=== PATIENT | female | born 1985 | race Caucasian/White ===

== ENCOUNTER 2016-10-25 12:16 | Day surgery (SDC) | payer OTHER ==
[2016-10-25] VITALS (10 sets, daily range): BP systolic 97–106; BP diastolic 55–63; PULSE 80–93; RESP 13–29; Ht 170.2 cm; Wt 66.3 kg
[~2016-10-25] VITALS: Ht 170.2 cm; Wt 66.3 kg
[~2016-10-25 12:16] MED LIST: CEFAZOLIN 1 GM/50 ML (PMX) 50 ML IVPB SCH; NITR-52; PREN1TAB49; PROPOFOL 200 MG INJ ONE; SOD CHLORIDE 0.9% 1,000 ML IV SCH
[2016-10-25] MEDS ORDERED: FENTAnyl 50 MCG/ML VIAL ONE (14:38)
[2016-10-25] MEDS ORDERED: ONDANSETRON 4 MG INJ ONE (14:38)
[2016-10-25] MEDS ORDERED: DEXAMETHASONE 4 MG/ML 1 ML INJ ONE (14:38)
[2016-10-25] MEDS ORDERED: MIDAZOLAM 1 MG/ML 2 ML INJ ONE (14:38)
[2016-10-25] MEDS ORDERED: KETOROLAC 30 MG INJ ONE (14:38)
[2016-10-25] MEDS ORDERED: CEFAZOLIN 1 GM INJ ONE (14:38)
[2016-10-25] MEDS ORDERED: LIDOCAINE 100 MG SYRINGE ONE (14:38)
[2016-10-25] MEDS ORDERED: BUPIVACAINE 0.25% (MPF) 30 ML INJ ONE (15:00)
[2016-10-25] MEDS ORDERED: MIDAZOLAM 1 MG/ML 2 ML INJ IV PRN (15:30)
[2016-10-25] MEDS ORDERED: HYDROCODONE/APAP (5/325) TAB PO ONE (15:30)
[2016-10-25] MEDS ORDERED: TRIMETHOBENZAMIDE 100 MG/ML VIAL IM PRN (15:30)
[2016-10-25] MEDS ORDERED: DIPHENHYDRAMINE 50 MG INJ IV PRN (15:30)
[2016-10-25] MEDS ORDERED: FENTAnyl 50 MCG/ML VIAL IV PRN ×3 (15:30)
[2016-10-25] MEDS ORDERED: HYDROmorphONE (0.2 MG/ML) 10ML SYG IV PRN ×2 (15:30)
[2016-10-25] MEDS ORDERED: hydrALAzine 20 MG INJ IV PRN (15:30)
[2016-10-25] MEDS ORDERED: MEPERIDINE 25 MG INJ IV PRN (15:30)
[2016-10-25] MEDS ORDERED: ONDANSETRON 4 MG INJ IV PRN (15:30)
[2016-10-25] MEDS ORDERED: EPHEDrine SULFATE 50 MG/5 ML SYG IV PRN (15:30)
[2016-10-25] MEDS ORDERED: LABETALOL HCL 20MG INJ IV PRN (15:30)
[2016-10-25] MEDS: HYDROmorphONE (0.2 MG/ML) 10ML SYG IV PRN ×2 (15:45→16:02)
--- NOTE | 2016-10-25 16:21 | OPR ---
DATE OF OPERATION: 10/25/2016 INDICATION: This is a 31-year-old female with abdominal mass. She requests surgical excision of th e abdominal mass. Risks, alternatives, benefits, and personnel were discussed with the patient. Kannan denney expressed understanding and consents to the operation. POSTOPERATIVE DIAGNOSIS: Abdominal mass. OPERATION PERFORMED 1. Excision of abdominal mass with 5 cm size incision over the old incision. 2. Localized adjacent tissue transfer with the use of skin flaps. SURGEON: Blanca Sutton MD SPECIMENS: Abdominal mass. COMPLICATIONS: None. ANESTHESIA: General. PROCEDURE: The patient was taken to the OR and prepped and draped in usual sterile fashion. Surgic al timeout was performed. IV antibiotics were given. Incision is made over the abdominal mass over the old incision with a 15 blade. Dissection cautery was carried down to the mass and circumferent ially excised. There was good hemostasis. Due to the large tissue defect, localized adjacent tissu e transfer with the use of skin flaps was performed. Multilayer closure with interrupted 3-0 Vicryl and skin hope. Local anesthesia was injected. Dry dressings were applied. Dictated By: BLANCA SUTTON MD SB/NTS Conf#: [id number] DID#: [id number]
== END 2016-10-25 17:00 | disposition home or self-care (01) ==
LOC: SDS 12:16
PROVIDERS: ATTEND Surgery
DX: N80.6 Endometriosis in cutaneous scar (principal)
CPT/HCPCS: 14000; 84703; 88304; J0690; J1100; J1170; J1885; J2001; J2250; J2405; J3010; Z7512; Z7610